=== PATIENT | male | born 1965 | race Caucasian/White ===

== ENCOUNTER 2020-12-29 15:06 | Outpatient (RCR) | payer MEDICARE, SELFPAY ==
[2020-12-29] MEDS: COVID-19 VACC, MRNA(PFIZER)/PF 30 MCG/0.3 ML SYRINGE IM (14:48)
[2021-01-19] MEDS: COVID-19 VACC, MRNA(PFIZER)/PF 30 MCG/0.3 ML SYRINGE IM (14:42)
== END 2021-03-23 23:59 ==
LOC: IMMUN 15:06
PROVIDERS: Referring Provider Family Medicine; Visit Provider Family Medicine
DX: Z23 Encounter for immunization (principal)
CPT/HCPCS: 0001A; 0002A; 91300

== ENCOUNTER 2023-02-08 12:29 | Observation (INO) | payer SELFPAY ==
[2023-02-08] VITALS (10 sets, daily range): BP systolic 116–142; BP diastolic 73–103; PULSE 60–76; RESP 16–18; TEMP 36.5–36.8; O2SAT 93–99; BMI 18.2; BMI 15.1
--- NOTE | 2023-02-08 12:38 | EKG12_ITS ---
Test Reason : Blood Pressure : / mmHG Vent. Rate : 063 BPM Atrial Rate : 063 BPM P-R Int : 146 ms QRS Dur : 078 ms QT Int : 402 ms P-R-T Axes : 082 090 080 degrees QTc Int : 411 ms Normal sinus rhythm Rightward axis Borderline ECG Confirmed by CHAD LOJA, JO ([id number]), scientific editor DENILSON CLAY ([id number]) on 02/09/2023 8:57:26 AM Referred By: Confirmed By:JO BONILLA MD
--- NOTE | 2023-02-08 12:38 | CT_ITS ---
STUDY: CT BRAIN WITHOUT CONTRAST REASON FOR EXAM: Male, 57 years old. Altered mental status RADIATION DOSAGE (If Supplied By Facility): CTDIvol = ( 44.99 ) mGy, DLP = ( 863.60 ) mGycm TECHNIQUE: Transaxial CT imaging of the brain was performed without administration of intravenous contrast material. Individualized dose optimization techniques were used for this CT. COMPARISON: No relevant priors. FINDINGS: Normal soft tissue structures. Normal calvarium. Normal size ventricles and extra-axial spaces for the patient''s age. Normal white matter tracts of the cerebral hemispheres. Normal basal ganglia and thalami. Normal brainstem. Normal cerebellum. There is no intracranial hemorrhage. There are no findings of an acute ischemic infarction. Normal visualized paranasal sinuses. CT/Brain/Head without Contrast IMPRESSION: Normal unenhanced CT scan of the brain. Electronically Signed: Pablo Raygoza MD at 13:09 EDT ,
--- NOTE | 2023-02-08 12:38 | ED.RN ---
ED doctor stated on to call stroke alert [id number].
[2023-02-08 12:49] LABS: Absolute Lymphocyte Count 1.11 X10^3/uL (0.83-4.51); Absolute Neutrophil Count 4.2 X10^3/uL (2.0-7.7); Basophil# 0.05 X10^3/uL; Basophil% 0.9 % (0-1); Eosinophil# 0.08 X10^3/uL; Eosinophils% 1.4 % (0-5); Hematocrit 41.9 % (40-54); Hemoglobin 14.4 g/dL (13.0-16.5); Lymphocyte # 1.11 X10^3/ul (0.83-4.51); Mean Corp Hgb Conc 34.4 g/dL (32-36); Mean Corpuscular Volume 98.8 fL (80-94); Mean Platelet Vol. 9.6 fl (6.2-12.0); Monocyte# 0.42 X10^3/uL; Monocyte% 7.2 % (0-10); NRBC Flagged by Analyzer 0 % (0-5); Neutrophil # 4.17 X10^3/uL (2.7-7.7); Neutrophil % 71.2 % (47-70); Platelet Count 321 K/mm3 (150-450); RBC Distribution Width CV 11.4 % (11.6-14.6); RBC Distribution Width SD 41.5 fl (35.1-43.9); Red Blood Count 4.24 M/mm3 (4.6-6.2); White Blood Count 5.9 K/mm3 (4.4-11.0)
[2023-02-08] MEDS: 0.9% Normal Saline 1,000 ML 1000 ML IV (12:54)
--- NOTE | 2023-02-08 12:57 | EX.ED.DYSGE1 ---
HPI History of Present Illness Chief Complaint: Mental Status Change Informant: patient and EMS Onset/Context/Timing Onset: Today Context: Sudden Onset Timing: Intermittent Quality: Confusion Location: Generalized Worsened by: Nothing Relieved by: Nothing Narrative Narrative: Patient presents with confusion that occurred today while he was at work. Coworkers noticed that patient was walking and was confused. Coworker stated patient was having some difficulty speaking and would not answer their questions. Coworkers called EMS. EMS noted that the patient did not have any focal neurodeficits but was acting confused. Currently, the patient is able to talk. He is alert and oriented to person place and time. Patient denies any pain anywhere. Patient denies any visual changes. Patient denies any headaches. Patient denies any nausea or vomiting. Patient denies any fevers or chills. [facility] Medical History Hearing loss HTN (hypertension) Meniere disease Vertigo Home Medications amlodipine 10 mg tablet 10 mg PO DAILY 90 days ##90 10/30/17 [History Last Taken Unknown] atenolol 25 mg tablet 25 mg PO DAILY 90 days ##360 10/30/17 [History Last Taken Unknown] hydrochlorothiazide 25 mg tablet 25 mg PO DAILY 90 days ##90 10/30/17 [History Last Taken Unknown] quinapril 40 mg tablet 40 mg PO DAILY 90 days ##90 10/30/17 [History Last Taken Unknown] Allergy/AdvReac Type Severity Reaction Status Date / Time bupropion [From Wellbutrin] Allergy Unknown Verified 10/30/17 09:31 Surgical History no surgical history no surgical history Social History (Updated 02/08/23 @ 12:[address] Yoni Saldaña DO) Smoking Status: Current every day smoker tobacco type: cigarettes alcohol intake: current alcohol intake frequency: 3 or more drinks per day Alcohol type: beer ROS ROS ED Constitutional Constitutional ED: Denies chills or fever(s) Eyes Eyes: Denies blurry vision or change in vision ENT ENT ED: Denies rhinorrhea or sore throat Cardiovascular Cardiovascular: Denies chest pain or palpitations Respiratory/Chest Respiratory/Chest: Denies cough or dyspnea Gastrointestinal Gastrointestinal: Denies nausea or vomiting Genitourinary Genitourinary ED: Denies dysuria or hematuria Musculoskeletal Musculoskeletal: Denies back pain or neck pain Integumentary Denies abscess or rash Neurologic Neurologic: Denies headache(s) or weakness Allergic/Immunologic Allergic/Immunologic ED: Denies mouth swelling or urticaria EXAM Physical Exam Const Vital Signs: 02/08/23 12:33 02/08/23 12:30 02/08/23 13:34 Temperature 97.7 F L Temperature Source Temporal Pulse Rate 60 Respiratory Rate 18 18 Blood Pressure 116/101 H 141/74 H Blood Pressure Mean 106 96 Pulse Ox 98 Oxygen Delivery Method Room Air 02/08/23 14:06 Temperature Temperature Source Pulse Rate 67 Respiratory Rate 18 Blood Pressure 142/73 H Blood Pressure Mean 96 Pulse Ox 99 Oxygen Delivery Method Room Air Positive well nourished and well developed General Appearance ED: well developed and NAD HEENT Reports moist mucous membranes Neck supple and no JVD Resp normal respiratory effort and clear to auscultation bilaterally Cardio regular rate and regular rhythm GI normal to inspection, nondistended, normoactive bowel sounds and non-tender Palpation: soft Extremity normal to inspection General Extremety ED: Negative for edema or tenderness General Extremity: Negative for edema Neuro oriented x3, CN's II-XII intact bilaterally and no sensory deficits noted Sensorium / Orientation: alert Motor Exam: strength 5/5 throughout Psych mental status grossly normal Skin no rashes or lesions noted MDM MDM MDM Narrative Medical decision making narrative: Differential diagnosis includes cardiac dysrhythmia, cardiac ischemia, stroke, electrolyte abnormality, dehydration, acute kidney injury, anemia, urinary tract infection, sepsis, alcohol intoxication, hypoglycemia, and hyperglycemia. CT scan of the brain will be obtained to assess for stroke and intracranial bleeding. Chest x-ray will be obtained to assess for pneumonia and pneumothorax. EKG will be obtained to assess for cardiac dysrhythmia and cardiac ischemia. CBC will be obtained to assess for anemia and leukocytosis. Comprehensive metabolic profile will be obtained to assess for hepatic function, renal function, and electrolyte abnormality. Urinalysis will be obtained to assess for urinary tract infection and hematuria. PT was INR and PTT will be obtained to assess for coagulopathy. History & Record Review Discussion w/independent historian: EMS personnel Lab Data Attestation: I reviewed the patient's lab results. Lab results narrative: CBC was reviewed and was within normal limits. Comprehensive metabolic profile was reviewed. Sodium was slightly low at 127 and chloride was 91. Glucose was slightly elevated at 149. The remainder was within normal limits. Anion gap was normal. PT with INR and PTT were reviewed and were within normal limits. High-sensitivity troponin was normal at 6. 2-hour repeat high-sensitivity troponin was also normal at 6. Urinalysis was reviewed. There is no evidence of urinary tract infection or hematuria. Serum alcohol level was reviewed and was less than 3.0. Labs: Laboratory Results - last 24 hr 02/08/23 02/08/23 02/08/23 12:27 12:27 12:27 WBC 5.9 RBC 4.24 L Hgb 14.4 Hct 41.9 MCV 98.8 H MCH 34.0 H MCHC 34.4 RDW Std Deviation 41.5 RDW Coeff of [place]il[place] 11.4 L Plt Count 321 MPV 9.6 Immature Gran % (Auto) 0.300 Neut % (Auto) 71.2 H Lymph % (Auto) 19.0 Rhea % (Auto) 7.2 Eos % (Auto) 1.4 Baso % (Auto) 0.9 Absolute Neuts (auto) 4.2 Absolute Lymphs (auto) 1.11 Nucleated RBC % 0 PT 12.5 INR 1.0 APTT 30.6 Sodium 127 L Potassium 4.5 Chloride 91 L Carbon Dioxide 33.0 H Anion Gap 3 L BUN 10 Creatinine 0.86 Estim Creat Clear Calc 70.78 Est GFR (MDRD) Af Amer 118 Est GFR (MDRD) Non-Af 98 BUN/Creatinine Ratio 11.7 Glucose 149 H Calcium 9.5 Total Bilirubin 0.60 AST 26 ALT 19 Alkaline Phosphatase 104 Troponin I High Sens 6 Total Protein 7.5 Albumin 3.9 Globulin 3.6 Albumin/Globulin Ratio 1.1 Urine Color Urine Clarity Urine pH Ur Specific [place] Urine Protein Urine Glucose (UA) Urine Ketones Urine Occult Blood Urine Nitrite Urine Bilirubin Urine Urobilinogen Ur Leukocyte Esterase Urine RBC Urine WBC Ur Squamous Epith Cells Urine Bacteria Urine Mucus Ethyl Alcohol 02/08/23 02/08/23 02/08/23 12:27 13:27 14:45 WBC RBC Hgb Hct MCV MCH MCHC RDW Std Deviation RDW Coeff of [place] Plt Count MPV Immature Gran % (Auto) Neut % (Auto) Lymph % (Auto) Rhea % (Auto) Eos % (Auto) Baso % (Auto) Absolute Neuts (auto) Absolute Lymphs (auto) Nucleated RBC % PT INR APTT Sodium Potassium Chloride Carbon Dioxide Anion Gap BUN Creatinine Estim Creat Clear Calc Est GFR (MDRD) Af Amer Est GFR (MDRD) Non-Af BUN/Creatinine Ratio Glucose Calcium Total Bilirubin AST ALT Alkaline Phosphatase Troponin I High Sens 6 Total Protein Albumin Globulin Albumin/Globulin Ratio Urine Color Straw Urine Clarity Clear Urine pH 8.0 Ur Specific [place] 1.010 Urine Protein Negative Urine Glucose (UA) Normal Urine Ketones Negative Urine Occult Blood Negative Urine Nitrite Negative Urine Bilirubin Negative Urine Urobilinogen Normal Ur Leukocyte Esterase Negative Urine RBC 0 SEEN Urine WBC 0 SEEN Ur Squamous Epith Cells 0 SEEN Urine Bacteria 0 SEEN Urine Mucus 0 SEEN Ethyl Alcohol < 3.0 Radiography Diagnostic Testing: Clinical Impression(s) from Imaging Studies Brain CT 02/08/23 12:38 IMPRESSION: Normal unenhanced CT scan of the brain. Electronically Signed: Pablo Raygoza MD at 13:09 EDT , Chest X-Ray 02/08/23 13:20 IMPRESSION: Hyperinflation. The lungs are clear. Electronically Signed: Pablo Raygoza MD at 13:50 EDT , CT scan of the brain was obtained. There is no acute intracranial abnormality. This was interpreted by the radiologist and was also independently reviewed by myself. Portable 1 view chest x-ray was obtained. On my independent interpretation, lung jason are clear. There is normal cardiac silhouette. Bony thorax is normal. There is no acute process noted. Radiologist also interpreted the x-ray and agrees. EKG Initial EKG: Attestation: I personally reviewed and interpreted this EKG as follows: Interpretation: Sinus Rhythm (63) and No Acute Injury Pattern Comments: EKG was obtained. On my independent interpretation, it showed a normal sinus rhythm with a rate of 63. DC interval, QRS interval, and QTc intervals were all normal. Ellery was normal. There are no acute ST or T wave changes. Prior EKG tracings: not available for review Prior: No Prior Management Discussion w/another healthcare provider: Hospitalist Treatment and Re-Evaluation :: Patient was given IV fluids. Patient was advised of his findings. Patient is still slightly slow to respond but states he feels better. Patient has no focal neurodeficits noted. Patient does admit to history of alcohol abuse. Because of this, serum ammonia level was ordered and is pending. Case was discussed with the hospitalist for admission. Will admit the patient to PCU for observation. Patient understands and is agreeable with the plan. All questions were answered. Discharge Plan Dx/Rx/DC Orders Clinical Impression: TIA (transient ischemic attack), Confusion Disposition Disposition: Acute Care Hospital [facility]
[2023-02-08 13:03] LABS: ALB/GLOB Ratio 1.1 RATIO (0.9-2.4); AST(SGOT) 26 U/L (15-37); Alanine Aminotransfer ALT/SGPT 19 U/L (16-61); Albumin, Serum 3.9 g/dL (3.2-5.0); Alkaline Phosphatase 104 U/L (45-117); Anion Gap 3 (5-15); BUN 10 mg/dL (7-18); BUN/Creat Ratio 11.7 RATIO (10-20); Calcium,Total 9.5 mg/dL (8.5-10.1); Chloride 91 mmol/L (98-107); Creatinine, Serum 0.86 mg/dL (0.70-1.30); EST Glomerular Filtration Rate 98 mL/min (>60); Est Glom Filt Rate - Afr Amer 118 mL/min (>60); Estimated Creatinine Clearance 70.78 ml/min; Globulin 3.6 g/dL (2.2-4.2); Glucose 149 mg/dL (74-106); Potassium 4.5 mmol/L (3.5-5.1); Protein, Total 7.5 g/dL (6.4-8.2); Sodium Level 127 mmol/L (136-145); Troponin-I HS (w/2H Reflex) 6 pg/mL (3.0-78.0)
[2023-02-08 13:11] LABS: Alcohol, Blood (Medical)-Serum < 3.0 mg/dL
--- NOTE | 2023-02-08 13:20 | RAD_ITS ---
STUDY: X-RAY CHEST REASON FOR EXAM: Male, 57 years old. Cough TECHNIQUE: Single AP portable view of the chest. COMPARISON: None. FINDINGS: EKG electrodes are seen. Hyperinflation. There is no demonstrated pleural abnormality. Normal size heart. Normal mediastinum and caroline. There is prominence of the pulmonary hilar arteries without peripheral pulmonary vascular congestion, suggesting pulmonary hypertension. Normal visualized aortic arch and descending thoracic aorta. Normal visualized thoracic spine. Normal visualized ribs, clavicles, and shoulders. There is no demonstrated abnormality of the visualized soft tissue structures of the upper abdomen. RAD/Chest 1 View (Portable) IMPRESSION: Hyperinflation. The lungs are clear. Electronically Signed: Pablo Raygoza MD at 13:50 EDT ,
[2023-02-08 13:27] LABS: Prothrombin Time (Protime)PT. 12.5 SECONDS (11.7-14.9)
[2023-02-08 13:28] LABS: Partial Thromboplast Time 30.6 Seconds (24.1-36.2)
[2023-02-08 13:34] LABS: Bacteria 0 SEEN /hpf (None Seen); Mucous, Urine 0 SEEN /hpf (<or=2+); Red Blood Cells-Urine 0 SEEN /hpf (0-5); Squamous Epithelial Cells - UA 0 SEEN /hpf (0-5); White Blood Cells 0 SEEN /hpf (0-5)
[2023-02-08 13:40] LABS: Color, Urine Straw (Yellow); Glucose, Dipstick Normal (Normal); Ketone-Dipstick Negative (Negative); Leukocyte Esterase-Dipstick Negative /ul (Negative); Nitrite-Dipstick Negative (Negative); Occult Blood-Urine Negative /ul (Negative); Protein-Dipstick Negative (Negative); Urine Bilirubin Dipstick Negative (Negative); Urine Clarity Clear (Clear); Urine Urobilinogen Normal (Normal)
[2023-02-08 14:42] LABS: Reflex Troponin-HS? (from REC) Y
[2023-02-08 15:32] LABS: Troponin-I HS 6 pg/mL (3.0-78.0)
--- NOTE | 2023-02-08 16:41 | HP.PCM.HOS_ITS ---
HPI - General General Date of Admission: 02/08/23 Date of Service: 02/08/23 Chief Complaint: Acute confusion HPI Narrative SERG HAMMOND, is a 57 M who presented to the emergency department at [facility] with acute mental status change. The patient was evidently at work and some of his coworkers noticed that he was walking around aimlessly and confused. Coworkers stated that he was having some difficulty speaking and would not answer their questions. EMS was called. Upon initial evaluation by EMS he did not have any focal neurological deficits but was acting very confused. He denies any other associated symptoms. I did discuss this further with his and she states that he typically has no confusion but has had increased balance issues and he has a heavy drinker. She states she is try to get him to go to rehab before but he is unwilling and does not want to go through any type of detox program. She states he drinks approximately 15 beers a night and has done so for a very long time. His last drink was last evening. She states he is never really gone without alcohol but it is typical for him onl y to drink at night after work. At the time of my evaluation he has no complaints however is response times are slow. Vital signs on presentation show a temperature of 97.7, heart rate 60, blood pre ssure is 141/74 and respiratory rate 18. Oxygen saturations were 98% on room air. His CBC was unremarkable other than mildly elevated MCV at 98.8. Coags are normal. Chemistry panel showed hyponatremia with a sodium of 127 with no previous and hypochloremia at 91. His serum bicarb was 33 and I expect this is from his chronic tobacco abuse and suspected COPD with likely hypercapnia. Renal function was normal. Glucose was slightly elevated at 144 however this is not fasting. Liver functions are normal. His ammonia was 32. Troponin was 6 initially and on delta repeat. EKG showed normal sinus rhythm without any ST-T wave changes consistent with acute ischemia and normal intervals. CT of the brain was normal. Chest x-ray demonstrated changes consistent with COPD having hyperinflation but no acute abnormalities. [facility] Medical History (Updated 02/08/23 @ 21:[address] Tawny Rothman, DO) Alcohol abuse Hearing loss HTN (hypertension) Meniere disease Tobacco abuse Vertigo Home Medications amlodipine 10 mg tablet 10 mg PO DAILY 90 days ##90 10/30/17 [History Last Taken Unknown] atenolol 25 mg tablet 25 mg PO DAILY 90 days ##360 10/30/17 [History Last Taken Unknown] hydrochlorothiazide 25 mg tablet 25 mg PO DAILY 90 days ##90 10/30/17 [History Last Taken Unknown] quinapril 40 mg tablet 40 mg PO DAILY 90 days ##90 10/30/17 [History Last Taken Unknown] Allergy/AdvReac Type Severity Reaction Status Date / Time bupropion [From Wellbutrin] Allergy Unknown Verified 10/30/17 09:31 Family History no significant family his no significant family history Surgical History no surgical history no surgical history Social History (Updated 02/08/23 @ 21:[address] Tawny Rothman, DO) household members: spouse housing: house current occupational status: employed Smoking Status: Current every day smoker tobacco type: cigarettes alcohol intake: current alcohol intake frequency: 3 or more drinks per day Alcohol type: beer Previous attempts at quittin details: 15 beers every night-patient has no desire to quit substance use type: does not use ROS Constitutional Constitutional: Denies anorexia, change in weight, chills, fatigue, fever(s), malaise, night sweats, weakness or other Eyes Eyes: Denies blurry vision, change in eye color, change in vision, discharge from eye(s), double vision, erythema, eye pain, loss of vision or other ENT HEENT: Denies abnormal hearing, dysphagia, ear pain, epistaxis, headache(s), hearing loss, nasal congestion, nasal discharge, post nasal drip, sinus pressure, sore throat or other Cardiovascular Cardiovascular: Denies chest pain, claudication, dyspnea on exertion, edema, lightheadedness, orthopnea, palpitations, paroxysmal nocturnal dyspnea, rapid heart rate, syncope or other Respiratory/Chest Respiratory/Chest: Denies cough, dyspnea, excessive phlegm production, hemoptysis, productive cough, shortness of breath at rest, shortness of breath with exertion, wheezing or other Gastrointestinal Gastrointestinal: Denies abdominal pain, coffee ground emesis, constipation, diarrhea, dyspepsia, hematemesis, hematochezia, loose stools, melena, nausea, vomiting or other Genitourinary Genitourinary: Denies burning urination, difficulty urinating, dysuria, hematuria, nocturia, urinary frequency, urinary hesitancy, urinary incontinence, urinary urgency or other Musculoskeletal Musculoskeletal: Denies arthralgias, back pain, joint pain, joint stiffness, joint swelling, myalgias, neck pain or other Neurologic Neurologic: Reports confusion; Denies abnormal gait, abnormal speech, disequilibrium, dizziness, focal weakness, headache(s), numbness, paresthesias, seizure-like activity, seizures, syncope, tingling, tremor(s) or other Psychiatric Psychiatric: Denies anxiety, depression, homicidal ideation, suicidal ideation or other Endocrine Endocrinology: Denies change in body appearance, cold intolerance, excessive sweating, heat intolerance, polydipsia, polyuria or other Hematologic/Lymphatic Hematologic/Lymphatic: Denies anemia, easy bleeding, easy bruising, lymphadenopathy or other Allergic/Immunologic Allergic/Immunologic: Denies rhinitis, hives, eczemia, asthma or other Vital Signs Vital Signs Vital Signs: 02/08/23 12:33 02/08/23 12:30 02/08/23 13:34 Temperature 97.7 F L Temperature Source Temporal Pulse Rate 60 Respiratory Rate 18 18 Blood Pressure 116/101 H 141/74 H Blood Pressure Mean 106 96 Pulse Ox 98 Oxygen Delivery Method Room Air 02/08/23 14:06 Temperature Temperature Source Pulse Rate 67 Respiratory Rate 18 Blood Pressure 142/73 H Blood Pressure Mean 96 Pulse Ox 99 Oxygen Delivery Method Room Air Weight Weight: 52.8 kg Body Mass Index (BMI) 18.2 Physical Exam Const alert, oriented x3, no apparent distress and well nourished Constitutional Narrative: Upper middle-aged white male, sitting up in a chair fully dressed, appears comfortable, at bedside, response time to questions are extremely slow however he is able to answer most questions without issue but he does demonstrate some slight confusion intermittently HEENT normocephalic and head/scalp atraumatic HEENT Narrative: Dentures in place, mild hearing loss, mucous membranes are moist, no thrush, Mallampati 2 Eyes PERRL, EOMs intact bilaterally and conjunctivae normal Eyes Narrative: No scleral icterus Neck no lymphadenopathy, supple and no JVD Neck Narrative: Trachea midline, no thyroid enlargement Resp normal respiratory effort, no retractions, no use of accessory muscles and No clear to auscultation bilaterally Resp Narrative: Scattered diffuse end expiratory wheezes Auscultation: wheezes; Negative for rales or rhonchi Cardio regular rate, regular rhythm, S1 normal heart sound, S2 normal heart sound, no murmurs, no rub, no gallops and no clicks GI normal to inspection, nondistended, normoactive bowel sounds, soft to palpation and non-tender Extremity no clubbing, cyanosis or edema Extremity Narrative: Slight clubbing, no cyanosis or edema Skin no rashes or lesions noted, no wounds, skin turgor normal, no jaundice, no petechiae and no mottling Skin Narrative: Difficult as patient is fully dressed and not really willing to take his clothes off at this time but no significant abnormalities noted on limited exam Neuro oriented x3, CN's II-XII intact bilaterally, moves all extremities and no focal motor deficits Neuro Narrative: Speech is normal in quality however response times are delayed fairly consistently Psych Psych Narrative: Affect is flat Results Lab / Micro Data Attestation: I reviewed the patient's lab results. Result Diagrams: 02/08/23 12:27 02/08/23 12:27 Labs: Laboratory Results - last 24 hr 02/08/23 12:27: WBC 5.9, RBC 4.24 L, Hgb 14.4, Hct 41.9, MCV 98.8 H, MCH 34.0 H, MCHC 34.4, RDW Std Deviation 41.5, RDW Coeff of [place]ilson 11.4 L, Plt Count 321, MPV 9.6, Immature Gran % (Auto) 0.300, Neut % (Auto) 71.2 H, Lymph % (Auto) 19.0, [place] % (Auto) 7.2, Eos % (Auto) 1.4, Baso % (Auto) 0.9, Absolute Neuts (auto) 4.2, Absolute Lymphs (auto) 1.11, Nucleated RBC % 0 02/08/23 12:27: PT 12.5, INR 1.0, APTT 30.6 02/08/23 12:27: Sodium 127 L, Potassium 4.5, Chloride 91 L, Carbon Dioxide 33.0 H, Anion Gap 3 L, BUN 10, Creatinine 0.86, Estim Creat Clear Calc 70.78, Est GFR (MDRD) Af Amer 118, Est GFR (MDRD) Non-Af 98, BUN/Creatinine Ratio 11.7, Glucose 149 H, Calcium 9.5, Total Bilirubin 0.60, AST 26, ALT 19, Alkaline Phosphatase 104, Troponin I High Sens 6, Total Protein 7.5, Albumin 3.9, Globulin 3.6, Albumin/Globulin Ratio 1.1 02/08/23 12:27: Ethyl Alcohol < 3.0 02/08/23 13:27: Urine Color Straw, Urine Clarity Clear, Urine pH 8.0, Ur Specific [place] 1.010, Urine Protein Negative, Urine Glucose (UA) Normal, Urine Ketones Negative, Urine Occult Blood Negative, Urine Nitrite Negative, Urine Bilirubin Negative, Urine Urobilinogen Normal, Ur Leukocyte Esterase Negative, Urine RBC 0 SEEN, Urine WBC 0 SEEN, Ur Squamous Epith Cells 0 SEEN, Urine Bacteria 0 SEEN, Urine Mucus 0 SEEN 02/08/23 14:45: Troponin I High Sens [address] 02/08/23 12:38 IMPRESSION: Normal unenhanced CT scan of the brain. Electronically Signed: Pablo Raygoza MD at 13:09 EDT , Chest X-Ray 02/08/23 13:20 IMPRESSION: Hyperinflation. The lungs are clear. Electronically Signed: Pablo Raygoza MD at 13:50 EDT , Assessment & Plan Assessment/Plan (1) Toxic metabolic encephalopathy: (2) Acute confusion: (3) Hyponatremia: (4) Alcohol abuse: PLAN: Plan Acute confusion/toxic/metabolic encephalopathy -No etiology yet identified--> differential includes but not exclusive to seizure/Wernicke's/stroke or TIA/substances -Do not think the etiology is his hyponatremia -We will check MRI -Check EEG -Check urine tox screen -Check lipids and hemoglobin A1c -Start aspirin and statin -Monitor NIH -High-dose thiamine at 250 mg 3 times daily for 3 days Hyponatremia -Baseline unknown -Sodium is 127 -Likely related to his alcohol intake as well as uses hydrochlorothiazide -We will discontinue hydrochlorothiazide -If does not improve may need further work-up Alcohol abuse -Per discussion with his he has no desire to quit -Patient uses approximately 1512 ounce beers every night and has done so for long periods of time -Patient has never had any withdrawal symptoms because he is never stopped drinking -We will start phenobarb taper -CIWA with as needed Ativan -Thiamine 250 mg IV 3 times daily x3 days -Folic acid -Supportive medication for any withdrawal symptoms Hypertension -Continue home amlodipine -Continue home atenolol -Continue home quinapril -Hold hydrochlorothiazide with hyponatremia -As needed hydralazine available for systolic pressure greater than 160 Tobacco abuse -I do highly suspect he has COPD -Would recommend outpatient follow-up for PFTs -Recommend cessation -Nicotine patch available DVT prophylaxis -Enoxaparin CODE STATUS -Full code Charges/Coding Visit Charges Inpatient E&M: 28689 Init Hosp L2
--- NOTE | 2023-02-08 16:41 | ED.RN ---
pt found to be walking outside to smoke. stated she was unable to stop him.
[2023-02-08] MEDS: Phenobarbital 32.4 MG Tablet 97.2 MG PO ×2 (18:17→23:10)
[2023-02-08 19:04] LABS: Amphetamine Urine VISTA NEGATIVE (<1000 ng/mL); Barbiturate Urine VISTA NEGATIVE (< 200 ng/mL); Benzodiazepine Urine VISTA NEGATIVE (< 200 ng/mL); Cocaine Urine VISTA NEGATIVE (< 300 ng/mL); Ecstacy Urine VISTA NEGATIVE (< 500 ng/mL); Methadone Urine VISTA NEGATIVE (< 300 ng/mL); PCP Urine VISTA NEGATIVE (< 25 ng/mL); THC Urine VISTA NEGATIVE (< 50 ng/mL); Vista UDS pH Range 7
[2023-02-08 22:56] LABS: Hemoglobin A1c 5.6 % (3.8-5.6)
[2023-02-08] MEDS: Atorvastatin Calcium 80 MG Tablet PO (23:10)
[2023-02-08] MEDS: 0.9% Saline Lock 10 ML Syringe IV (23:21)
[2023-02-09] VITALS (8 sets, daily range): BP systolic 113–134; BP diastolic 74–89; PULSE 66–90; RESP 16–18; TEMP 36.4–36.8; O2SAT 92–96
[2023-02-09] MEDS: Phenobarbital 32.4 MG Tablet 97.2 MG PO ×3 (05:59→13:34)
[2023-02-09 06:57] LABS: Cholesterol 163 mg/dL (200); High Density Lipoprotein 117 mg/dL; Triglycerides 61 mg/dL; Very Low Density Lipoprotein 12 mg/dL (5-40)
[2023-02-09 07:35] LABS: Absolute Lymphocyte Count 1.05 X10^3/uL (0.83-4.51); Absolute Neutrophil Count 4.2 X10^3/uL (2.0-7.7); Basophil# 0.09 X10^3/uL; Basophil% 1.4 % (0-1); Eosinophil# 0.24 X10^3/uL; Eosinophils% 3.8 % (0-5); Hematocrit 38.8 % (40-54); Hemoglobin 13.6 g/dL (13.0-16.5); Lymphocyte # 1.05 X10^3/ul (0.83-4.51); Lymphocyte % 16.6 % (19-41); Mean Corp Hgb Conc 35.1 g/dL (32-36); Mean Corpuscular Hgb 34.6 pg (27.0-32.0); Mean Corpuscular Volume 98.7 fL (80-94); Mean Platelet Vol. 9.7 fl (6.2-12.0); Monocyte# 0.66 X10^3/uL; Monocyte% 10.5 % (0-10); NRBC Flagged by Analyzer 0 % (0-5); Neutrophil % 66.6 % (47-70); Platelet Count 271 K/mm3 (150-450); RBC Distribution Width CV 11.7 % (11.6-14.6); RBC Distribution Width SD 42.8 fl (35.1-43.9); Red Blood Count 3.93 M/mm3 (4.6-6.2); White Blood Count 6.3 K/mm3 (4.4-11.0)
[2023-02-09 08:00] LABS: ALB/GLOB Ratio 1.1 RATIO (0.9-2.4); AST(SGOT) 23 U/L (15-37); Alanine Aminotransfer ALT/SGPT 16 U/L (16-61); Albumin, Serum 3.3 g/dL (3.2-5.0); Alkaline Phosphatase 81 U/L (45-117); Anion Gap 5 (5-15); BUN 11 mg/dL (7-18); BUN/Creat Ratio 15.7 RATIO (10-20); Calcium,Total 9.4 mg/dL (8.5-10.1); Chloride 101 mmol/L (98-107); EST Glomerular Filtration Rate 123 mL/min (>60); Est Glom Filt Rate - Afr Amer 149 mL/min (>60); Estimated Creatinine Clearance 78.88 ml/min; Globulin 3.1 g/dL (2.2-4.2); Glucose 95 mg/dL (74-106); Potassium 4.1 mmol/L (3.5-5.1); Protein, Total 6.4 g/dL (6.4-8.2); Sodium Level 132 mmol/L (136-145)
[2023-02-09] MEDS: Folic Acid 1 MG Tablet PO (09:36)
[2023-02-09] MEDS: Aspirin 81 MG TAB.CHEW PO (09:36)
[2023-02-09] MEDS: Atenolol 25 MG Tablet PO (09:37)
[2023-02-09] MEDS: Lisinopril 40 MG Tablet PO (09:37)
[2023-02-09] MEDS: Enoxaparin 40 MG/0.4 ML Syringe SC (09:37)
[2023-02-09] MEDS: amLODIPine 10 MG Tablet PO (09:37)
--- NOTE | 2023-02-09 10:00 | MRI_ITS ---
STUDY: MRI BRAIN WITH AND WITHOUT CONTRAST REASON FOR EXAM: Male, 57 years old. confusion, mental status change, speech difficulty TECHNIQUE: Standardized multiplanar fat and water weighted pulse sequences were obtained. IV Yes YES was administered for the contrast portion of the examination. COMPARISON: Head CT dated February 08, 2023 FINDINGS: Normal size of the ventricles and extra-axial spaces for the patient''s age. There are a limited number of small white matter hyperintensities, distributed throughout the deep white matter tracts of the cerebral hemispheres, consistent with mild chronic white matter ischemic changes. There is no evidence for recent intracranial ischemia or other cause of cytotoxic edema on diffusion weighted imaging (DWI). Normal T2* images of the brain without demonstrated susceptibility artifact. There is no demonstrated hemosiderin stain. There are no focal or suspicious brain parenchymal lesions or abnormally enhancing lesions. There is no abnormal thickening or enhancement of the meninges or dura. No skull lesions are present. Normal bilateral basal ganglia. Normal thalami. There is no extra-axial fluid accumulation. Normal flow voids within the major intracranial circulation suggesting patency by spin echo criteria. Normal venous enhancement. There is no enhancing intra-axial or extra-axial abnormality. Normal sella turcica, pituitary gland, infundibular stalk, optic chiasm and hypothalamus. Normal tectal plate and pineal gland. Normal midbrain, amina and medulla. Normal cerebellum. Normal basal cisterns. Normal bilateral temporal bones. Normal bilateral internal auditory canals. No demonstrated orbital abnormality, within the constraints of a routine brain study. Normal visualized paranasal sinuses. Normal calvarium and skull base. Normal visualized soft tissue structures. Normal visualized upper cervical spine. MRI/Brain W/WO Contrast IMPRESSION: 1. Chronic ischemic changes of the brain, as described above. 2. No demonstrated acute infarct or intracranial hemorrhage 3. There are no focal or suspicious brain parenchymal lesions or abnormally enhancing lesions. There is no abnormal thickening or enhancement of the meninges or dura. No skull lesions are present. Electronically Signed: Lenard Baca MD at 13:45 EDT ,
[2023-02-09] MEDS: 0.9% Saline Lock 10 ML Syringe IV (13:37)
--- NOTE | 2023-02-09 14:02 | CASEMGMT ---
SW checked in with patient and his . Introduced self and role at [facility]. SW offered resources as patient is self pay. Patient's declined stating patient will be getting insurance at his job soon. ETOH resources were also declined. Loraine CORONA
--- NOTE | 2023-02-09 15:09 | DS.PCM_ITS ---
Providers Date of Admission: 02/08/23 Date of Discharge: 02/09/23 Primary Care Physician: No Primary Care Phys Reason For Visit: Encephalopathy Diagnosis Discharge Diagnosis (1) Metabolic encephalopathy: Status: Acute Code(s): G93.41 - Metabolic encephalopathy (2) Acute confusion: Status: Acute Code(s): R41.0 - Disorientation, unspecified (3) Hyponatremia: Status: Acute Code(s): E87.1 - Hypo-osmolality and hyponatremia (4) Alcohol abuse: Status: Acute Code(s): F10.10 - Alcohol abuse, uncomplicated Plan #Metabolic encephalopathy #Alcohol abuse #hyponatremia #HTN Medications at Discharge Home Medications amlodipine 10 mg tablet 10 mg PO DAILY 90 days ##90 10/30/17 atenolol 25 mg tablet 25 mg PO DAILY 90 days ##360 10/30/17 quinapril 40 mg tablet 40 mg PO DAILY 90 days ##90 10/30/17 folic acid 1 mg tablet 1 mg PO DAILY 30 days #30 tabs 02/09/23 thiamine HCl (vitamin B1) 100 mg tablet See Rx Instructions .Route .COMPLEX 90 days #90 tabs 02/09/23 Hospital Course Summary of Care Provided Minutes Spent on Discharge: 31 Hospital Course: 57-year-old male with a history of alcohol abuse presented to [facility] 02/08/2023 with acute confusion. He was at work and some coworkers noticed that he was walking around aimlessly and confused and was having some difficulty speaking would not answer questions. He did not have any focal deficits by EMS but was acting very confused and was brought in by EMS. It was reported by his that he is a heavy drinker and he has been unwilling to go through any rehab or detox program and he would drink 15 beers a night did so for very long time. Last drink was evening before presentation. He was started on phenobarbital taper to avoid withdrawal and EEG, MRI, labs ordered as well as high-dose thiamine 3 times daily. Did have sodium of 127 and his hydrochlorothiazide was discontinued. Patient improved significantly throughout the night and into the next day and EEG was normal and MRI with only chronic changes. Labs unrevealing for specific cause but improved with thiamine, query if his metabolic encephalopathy was due to Warnicke's given his heavy alcohol use. Will discharge on folate and thiamine. Discussed with him and his and recommended alcohol cessation, he is not open to cessation nor detox and he would like to go home. Had no other physical complaints. Discharge in structions as followed: -You will be discharged on thiamine and folate and it is advised that you take these as prescribed.? You will take the folate 1 mg daily.? You will take thiamine 200 mg (2 tabs) 3 times daily for 7 days followed by 100 mg daily thereafter -Your hydrochlorothiazide was held due to a low sodium level and it is advised that you do not continue this on discharge -Would recommend lab work (BMP) to check your sodium in 2 to 3 days through your primary care physician's office.? Please call their office upon discharge to obtain order for lab work. -If you do not have a primary care physician of list of local primary care physicians can be provided for you upon discharge.? Please ask for this list prior to discharge -Follow-up information will be provided for a neurologist should you need to and or want to establish with one if you have worsening memory for continued intermittent bouts of confusion. -It is strongly advised that you cease drinking however you have indicated that you do not want to complete detox and intend to continue alcohol use.? While you are in the hospital you were given a medication called phenobarbital in order to avoid alcohol withdrawal, this medication can stay in your system for a period of time after it is stopped so recommend being extremely careful with alcohol use after discharge as this combination may have adverse effects - It is strongly advised that you refrain from any substance use.? Please call [facility] located at [address] [place] [address] (ph [phone]) if you are interested in further resources -Please call your primary care provider's office upon discharge to schedule a hospital follow up within 1 week. -For any concerning signs or symptoms please call 911 or proceed to the nearest emergency department Physical Exam Narrative General: Alert, oriented, no apparent distress HEENT: Atraumatic, normocephalic Eyes: Anicteric, normal conjunctiva, extraocular movements intact, pupils equal Neck: Supple Respiratory: Clear to auscultation bilaterally, normal respiratory effort Cardiovascular: Regular rate and rhythm GI: Soft, nontender, nondistended Extremities: No edema Musculoskeletal: Strength 5 out of 5 in right upper extremity, 5 out of 5 left upper extremity Neuro: No overt focal neurological deficits, cranial nerves II through XII intact, [id number] without significant difficulty bilaterally Skin: No rashes appreciated Psych: Cooperative overall, occasionally had to ask a question twice but then he would answer Weight / BMI Weight Weight: 47.899 kg Body Mass Index (BMI) 15.1 ABG / Lab / Microbiology Data Result Diagrams: 02/09/23 05:43 02/09/23 05:43 Laboratory: Laboratory Results - last 24 hr 02/08/23 12:27: Hemoglobin A1c 5.6 02/08/23 13:27: Urine Opiates Screen NEGATIVE, Urine Methadone Screen NEGATIVE, Ur Barbiturates Screen NEGATIVE, Ur Phencyclidine Scrn NEGATIVE, Ur Amphetamines Screen NEGATIVE, MDMA (Ecstasy) Screen NEGATIVE, U Benzodiazepines Scrn NEGATIVE, Urine Cocaine Screen NEGATIVE, U Cannabinoids Screen NEGATIVE, Ur Drug Screen Comment 02/08/23 14:45: Troponin I High Sens 6 02/08/23 16:03: Ammonia 32.0 02/09/23 05:43: Triglycerides 61, Cholesterol 163, LDL Cholesterol 34, VLDL Cho lesterol 12, HDL Cholesterol 117, TSH 1.40 02/09/23 05:43: WBC 6.3, RBC 3.93 L, Hgb 13.6, Hct 38.8 L, MCV 98.7 H, MCH 34.6 H, MCHC 35.1, RDW Std Deviation 42.8, RDW Coeff of [place] 11.7, Plt Count 271, MPV 9.7, Immature Gran % (Auto) 1.100 H, Neut % (Auto) 66.6, Lymph % (Auto) 16.6 L, [place] % (Auto) 10.5 H, Eos % (Auto) 3.8, Baso % (Auto) 1.4 H, Absolute Neuts (auto) 4.2, Absolute Lymphs (auto) 1.05, Nucleated RBC % 0 02/09/23 05:43: Sodium 132 L, Potassium 4.1, Chloride 101, Carbon Dioxide 26.0, Anion Gap 5, BUN 11, Creatinine 0.70, Estim Creat Clear Calc 78.88, Est GFR (MDRD) Af Amer 149, Est GFR (MDRD) Non-Af 123, BUN/Creatinine Ratio 15.7, Glucose 95, Calcium 9.4, Total Bilirubin 1.00, AST 23, ALT 16, Alkaline Phosphatase 81, Total Protein 6.4, Albumin 3.3, Globulin 3.1, Albumin/Globulin Ratio 1.1 Radiography Diagnostic Testing: Radiology Impression Brain MRI 02/09/23 10:00 IMPRESSION: 1. Chronic ischemic changes of the brain, as described above. 2. No demonstrated acute infarct or intracranial hemorrhage 3. There are no focal or suspicious brain parenchymal lesions or abnormally enhancing lesions. There is no abnormal thickening or enhancement of the meninges or dura. No skull lesions are present. Electronically Signed: Lenard Baca MD at 13:45 EDT Reading Location ID and State: [facility] / [place] , Service support , D/C Instructions Discharge Diet: No restrictions Meaningful Use Info Meaningful Use Diagnoses (Choose all that apply): None applicable Discharge Plan Admission Admit Date/Time: 02/08/23 16:35 Primary Reason for Your Visit: Can usually Attending Provider: Luz Maria Hatch Primary Care Provider: Care Physician,No Primary Consulting Providers: Tawny Rothman Instructions Patient Instructions: Alcohol Addiction, ED Alcohol Abuse Additional Instructions / Restrictions: DISCHARGE INSTRUCTIONS PLEASE READ *Please take this with you to your next doctors appointment* -You will be discharged on thiamine and folate and it is advised that you take these as prescribed. You will take the folate 1 mg daily. You will take thiamine 200 mg (2 tabs) 3 times daily for 7 days followed by 100 mg daily thereafter -Your hydrochlorothiazide was held due to a low sodium level and it is advised that you do not continue this on discharge -Would recommend lab work (BMP) to check your sodium in 2 to 3 days through your primary care physician's office. Please call their office upon discharge to obtain order for lab work. -If you do not have a primary care physician of list of local primary care physicians can be provided for you upon discharge. Please ask for this list prior to discharge -Follow-up information will be provided for a neurologist should you need to and or want to establish with one if you have worsening memory for continued intermittent bouts of confusion. -It is strongly advised that you cease drinking however you have indicated that you do not want to complete detox and intend to continue alcohol use. While you are in the hospital you were given a medication called phenobarbital in order to avoid alcohol withdrawal, this medication can stay in your system for a period of time after it is stopped so recommend being extremely careful with alcohol use after discharge as this combination may have adverse effects - It is strongly advised that you refrain from any substance use. Please call [facility] located at [address] [place] [address] (ph [phone]) if you are interested in further resources -Please call your primary care provider's office upon discharge to schedule a hospital follow up within 1 week. -For any concerning signs or symptoms please call 911 or proceed to the nearest emergency department Discharge Orders/Prescriptions Prescriptions: New folic acid 1 mg tablet 1 mg PO DAILY 30 Days Qty: 30 0RF thiamine HCl (vitamin B1) 100 mg tablet See Rx Instructions .ROUTE .COMPLEX 90 Days Qty: 90 0RF Rx Instructions: Take 2 tabs three times daily for 7 days then 1 tab daily thereafter Continued atenolol 25 mg tablet 25 mg PO DAILY 90 Days Qty: 360 Label Comments: TAKE 2 TABLETS BY MOUTH TWICE A DAY quinapril 40 mg tablet 40 mg PO DAILY 90 Days Qty: 90 Label Comments: TAKE 1 TABLET BY MOUTH EVERY DAY amlodipine 10 mg tablet 10 mg PO DAILY 90 Days Qty: 90 Label Comments: TAKE 1 TABLET BY MOUTH ONCE DAILY. Discontinued hydrochlorothiazide 25 mg tablet 25 mg PO DAILY 90 Days Qty: 90 Label Comments: TAKE 1 TABLET BY MOUTH EVERY DAY Referrals / Follow Up: Care Physician,No Primary [Primary Care Provider] - Disposition Disposition (needs filled in before D/C Order can be placed): Home, Self Care Charges/Coding Visit Charges Inpatient E&M: 25051 Disch Hosp >30min
== END 2023-02-09 15:08 | disposition home or self-care (01) ==
LOC: ED 16:03 → PCU 16:45
PROVIDERS: Admitting Provider Internal Medicine; Emergency Provider Emergency Medicine; Visit Provider Internal Medicine
DX: G93.41 Metabolic encephalopathy (principal); E87.1 Hypo-osmolality and hyponatremia; I10 Essential (primary) hypertension; F10.10 Alcohol abuse, uncomplicated; Z79.899 Other long term (current) drug therapy; F17.210 Nicotine dependence, cigarettes, uncomplicated; Z79.82 Long term (current) use of aspirin; R47.9 Unspecified speech disturbances; R42 Dizziness and giddiness
CPT/HCPCS: 36415; 70450; 70553; 71045; 80053; 80061; 80307; 81001; 82077; 82140; 83036; 84443; 84484; 85025; 85610; 85730; 93005; 94762; 95819; 99285; A9575; A4216; J3490

== ENCOUNTER 2023-10-17 11:44 | Emergency (ER) | payer BC, SELFPAY ==
[2023-10-17 11:46] VITALS: BP 116/70; PULSE 83; RESP 14; TEMP 36.2; O2SAT 92; BMI 17.3
[2023-10-17 11:57] VITALS: O2SAT 95
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
[2023-10-17 13:35] VITALS: BP 139/81; PULSE 79; RESP 16; O2SAT 95
== END 2023-10-17 13:35 | disposition home or self-care (01) ==
PROVIDERS: Emergency Provider Emergency Medicine; PCP Family Medicine; Visit Provider Emergency Medicine
DX: S22.31XA Fracture of one rib, right side, initial encounter for closed fracture (principal); V49.40XA Driver injured in collision with unspecified motor vehicles in traffic accident, initial encounter; F17.210 Nicotine dependence, cigarettes, uncomplicated; Y92.410 Unspecified street and highway as the place of occurrence of the external cause; I10 Essential (primary) hypertension; Z79.899 Other long term (current) drug therapy
CPT/HCPCS: 71101; 99282